=== PATIENT | male | born 1985 | race Hispanic/Latino ===

== ENCOUNTER 2019-02-13 18:38 | Emergency (ER) | payer BC, OTHER ==
[~2019-02-13] VITALS: Ht 170.2 cm; Wt 79.4 kg
[2019-02-13 18:51] VITALS: BP 125/80
[2019-02-13 18:59] VITALS: BP 125/80
[2019-02-13 19:03] VITALS: BP 125/80
--- NOTE | 2019-02-13 19:57 | ER.PDOC ---
General Chief Complaint: Earache Stated Complaint: RIGHT EAR PAIN,CONGESTION Time seen by MD: 19:00 Source: patient Exam Limitations: no limitations History of Present Illness Initial Comments Right ear pain with congestion and cough since Sunday Timing/Duration: last week Severity: moderate Location of Pain: (R) Ear Associated Symptoms: fever/chills, aching earache, ringing in ears, jaw pain, s orethroat Past Medical History Medical History: no pertinent history Surgical History: appendectomy Social History Alcohol Use: rarely Drug Use: none Constitutional: chills Eyes: no symptoms reported Ears: dizziness, pain (pain worse at night and radiates down his jaw), tinnitus Nose: congestion, clear discharge Mouth: pain (right jaw pain difficult to eat) Throat: no symptoms reported Respiratory: cough Cardiovascular: no symptoms reported Gastrointestinal: no symptoms reported Musculoskeletal: no symptoms reported Skin: no symptoms reported All Other Systems: Reviewed and Negative Physical Exam General Appearance: alert, mild distress Ears: pain w/movement aucricle, erythema TM's: erythema (R(, loss of landmarks (R), bulging of TM (R), fluid/blood behind TM (R) Mouth/Throat: lips/gums nml, pharynx nml Nose: nml inspection Head/Neck: atraumatic, neck nml inspection Eyes: eyes nml inspection Resp/CVS: no resp distress, lungs clear, heart sounds nml, reg. rate & rhythm Abdomen: non-tender NEURO/PSYCH: oriented X3 Results/Orders Results/Orders Vital Signs Date Time Temp Pulse Resp B/P (MAP) Pulse Ox O2 Delivery O2 Flow Rate FiO2 02/13/19 19:03 98.9 71 18 02/13/19 18:59 98.9 71 18 125/80 (95) 96 Room Air 02/13/19 18:51 98.9 71 18 125/80 (95) 96 Room Air 02/13/19 18:51 98.9 71 18 96 Course Vitals & review Data Vital Sign - Last 24 Hours 02/13/19 02/13/19 02/13/19 02/13/19 18:51 18:51 18:59 19:03 Temp 98.9 98.9 98.9 98.9 Pulse 71 71 71 71 Resp 18 18 18 18 B/P (MAP) 125/80 (95) 125/80 (95) Pulse Ox 96 96 96 O2 Delivery Room Air Room Air O2 Sat by Pulse Oximetry: 96 Departure Time of Disposition: 20:00 Disposition: 01 HOME, SELF-CARE Impression: Primary Impression: Otitis media Condition: Stable Referrals: PCP,UNKNOWN (PCP) PRIMARY CARE PROVIDER Additional Instructions: Please return to the ER with worsening symptoms. Follow up with your PCP in 3 days or sooner if needed. Duration or Time Spent with Pa: 20 minutes DAVID HOWELL Feb 13, 2019 19:57
[2019-02-13 20:13] VITALS: BP 128/78
== END 2019-02-13 20:10 | disposition home or self-care (01) ==
LOC: ER 18:38
DX: H66.91 Otitis media, unspecified, right ear (principal); R68.84 Jaw pain; R42 Dizziness and giddiness; Z90.49 Acquired absence of other specified parts of digestive tract
CPT/HCPCS: 99281